=== PATIENT | female | born 1970 | race Caucasian/White ===

== ENCOUNTER 2017-12-08 19:14 | Emergency (ER) | payer OTHER ==
[~2017-12-08] VITALS: Ht 172.7 cm; Wt 89.4 kg
[2017-12-08 19:15] VITALS: BP_SYST 141
--- NOTE | 2017-12-08 19:16 | NUR ---
Patient to ER bed 1 to gown for evaluation. Side rails up. Seizure precautions in place.
--- NOTE | 2017-12-08 19:16 | NUR ---
Patient brought in by EMS. Patient reported to have Tonic/clonic seizures for 45 sec in the restaurant. No trauma per ems. Pt's airway patent. VSS. Pt has history of pseudo seizure per EMS. No SOB or acute distress noted. Will continue to monitor. Addendum: 12/08/17 at 2023 by [facility] Patient brought in by EMS. Patient reported to have Tonic/clonic seizures for 45 sec in the restaurant. No trauma per ems. Pt's airway patent. VSS. Pt has history of pseudo seizure per EMS. No SOB or acute distress noted. Padded side rails. Safety and seizure precautions in place. Will continue to monitor.
[2017-12-08] MEDS ORDERED: NACL 0.9% 1,000 ML IV ONE (19:17)
--- NOTE | 2017-12-08 19:17 | NUR ---
Patient came in with #20G L wrist on saline lock. IV site flushable with good blood return.
--- NOTE | 2017-12-08 19:21 | NUR ---
#20 gauge angiocath placed to RAC. Use of asceptic technique. Opsite placed over site. Blood return noted. Flushed with 10 cc of normal saline. No evidence of infiltration noted. Patient tolerated well.
[2017-12-08] MEDS ORDERED: LORazepam 2 MG/ML VIAL (FOR ER USE) IVP ONE (19:30)
[2017-12-08] MEDS ORDERED: levETIRAcetam 500 MG TABLET PO ONE (19:30)
[2017-12-08] MEDS ORDERED: LORazepam 2 MG/ML VIAL ONE (19:34)
--- NOTE | 2017-12-08 19:40 | NUR ---
ER Dr. Sanches at bedside examining patient.
[2017-12-08 19:46] LABS: BASOPHILS # (AUTO) 0.1 K/uL (0.0-0.2); BASOPHILS % (AUTO) 0.8 % (0.0-2.0); EOSINOPHILS # (AUTO) 0.3 K/uL (0.0-0.4); EOSINOPHILS % (AUTO) 4.5 % (0.0-4.0); HEMATOCRIT 38.7 % (36-48); HEMOGLOBIN 12.9 g/dL (12.0-16.0); LYMPHOCYTES # (AUTO) 2.3 K/uL (1.0-5.5); MEAN CORPUSCULAR HEMOGLOBIN 30 pg (27-31); MEAN CORPUSCULAR HGB CONC 33 % (32-36); MEAN CORPUSCULAR VOLUME 89 fL (79.0-98.0); MONOCYTES # (AUTO) 0.6 K/uL (0.0-1.0); MONOCYTES % (AUTO) 8.8 % (1.7-9.3); NEUTROPHILS % (AUTO) 49.9 % (40.0-70.0); PLATELET COUNT (AUTO) 317 K/uL (130-430); RED BLOOD CELL COUNT(AUTO) 4.37 MIL/uL (4.2-6.2); RED CELL DISTRIBUTION WIDTH 13.3 % (9.0-15.0); WHITE BLOOD COUNT (AUTO) 6.4 K/uL (4.8-10.8)
--- NOTE | 2017-12-08 19:48 | NUR ---
Pt's at bedside. Pt had 1 x episode of tonic clonic seizure for 3 mins. Pt VSS. Airway patent. Seizure pads kept in place. Will continue to monitor.
[2017-12-08 19:58] LABS: CALCIUM 8.7 mg/dL (8.4-11.0); CREATININE 0.87 mg/dL (0.55-1.30); POTASSIUM 3.4 mmol/L (3.5-5.1)
[2017-12-08] MEDS ORDERED: levETIRAcetam 1,000 MG IV BAG 100 ML IV ONE (20:00)
[2017-12-08 20:03] LABS: ALBUMIN 3.7 g/dL (3.4-4.8); TOTAL BILIRUBIN 0.3 mg/dL (0.0-1.0)
[2017-12-08 20:12] LABS: PROTHROMBIN TIME 10.3 SECS (9.5-12.5)
[2017-12-08] MEDS ORDERED: KETAMINE HCL 500 MG/10 ML VIAL IVP ONE ×2 (20:15→21:30)
[2017-12-08] MEDS ORDERED: KETAMINE HCL 500 MG/10 ML VIAL ONE (20:36)
--- NOTE | 2017-12-08 20:38 | NUR ---
Ketamine 80mg IVP given by ER MD Sanches. RT at bedside. Patient VSS. No distress noted. Will continue to monitor.
--- NOTE | 2017-12-08 21:12 | NUR ---
Dr. Sanches at bedside to re-evalutte patient.
--- NOTE | 2017-12-08 21:16 | NUR ---
Pt had tonic clonic seizure for 3 mins. Pt VSS. Airway remains patient. Safety and seizure precautions in place. MD made aware.
--- NOTE | 2017-12-08 21:21 | NUR ---
Tonic clonic seizure for 2mins. Airway remains patent. No distress noted. made aware.
--- NOTE | 2017-12-08 22:37 | NUR ---
Patient had multiple episodes of tonic clonic seizures every 10 - 30 mins, lasting from 1 - 15mins. Patient's airway kept patent. Seizure and aspiration precautions observed. Will continue to monitor.
[2017-12-08 23:23] VITALS: BP_SYST 137
--- NOTE | 2017-12-08 23:37 | NUR ---
Patient to be transferred to [facility]. Pt is being transferred due to [employer]. Receiving facility has accepting physician and available space. ER physician has signed transfer form. Patient or responsible alliance party has agreed to transfer and signed form. Patient belongings inventoried and will be sent with patient. Copy of nursing notes, lab reports, EKG, Physicians Orders and X-rays to be sent with patient. Receiving physician is Dr. Collins .
== END 2017-12-08 23:23 | disposition short-term general hospital (02) ==
LOC: SED 19:14 → EDBD 19:14 → SED 23:23
DX: R56.9 Unspecified convulsions (principal)
CPT/HCPCS: 36415; 80053; 82150; 82542; 83690; 85025; 85610; 85730; 96365; 96366; 96375; 96376; 99285; J1953; J2060; J7030

== ENCOUNTER 2018-02-27 05:53 | Emergency (ER) | payer OTHER ==
[~2018-02-27] VITALS: Ht 175.3 cm; Wt 81.6 kg
[2018-02-27 05:53] VITALS: BP_SYST 202
[2018-02-27] MEDS ORDERED: MORPHINE 4 MG/ML INJ. SYRINGE IVP ONE ×2 (06:15→07:00)
[2018-02-27] MEDS ORDERED: NACL 0.9% 1,000 ML IV ONE (06:15)
[2018-02-27 06:18] LABS: BASOPHILS # (AUTO) 0.1 K/uL (0.0-0.2); BASOPHILS % (AUTO) 1.3 % (0.0-2.0); EOSINOPHILS # (AUTO) 0.2 K/uL (0.0-0.4); EOSINOPHILS % (AUTO) 2.3 % (0.0-4.0); HEMATOCRIT 38.3 % (36-48); LYMPHOCYTES # (AUTO) 1.4 K/uL (1.0-5.5); LYMPHOCYTES % (AUTO) 13.5 % (20.5-51.5); MEAN CORPUSCULAR HEMOGLOBIN 30 pg (27-31); MEAN CORPUSCULAR HGB CONC 34 % (32-36); MEAN CORPUSCULAR VOLUME 87 fL (79.0-98.0); MONOCYTES # (AUTO) 0.5 K/uL (0.0-1.0); NEUTROPHILS # (AUTO) 7.9 K/uL (1.8-7.7); NEUTROPHILS % (AUTO) 77.9 % (40.0-70.0); PLATELET COUNT (AUTO) 379 K/uL (130-430); WHITE BLOOD COUNT (AUTO) 10.1 K/uL (4.8-10.8)
[2018-02-27 06:25] LABS: CALCIUM 9.2 mg/dL (8.4-11.0); CREATININE 0.79 mg/dL (0.55-1.30); POTASSIUM 3.7 mmol/L (3.5-5.1)
[2018-02-27 06:29] LABS: TOTAL BILIRUBIN 0.3 mg/dL (0.0-1.0)
[2018-02-27] MEDS ORDERED: KETOROLAC TROMETHAMINE 30 MG VIAL IVP ONE (06:30)
[2018-02-27] MEDS ORDERED: KETOROLAC TROMETHAMINE 30 MG VIAL ONE (06:35)
[2018-02-27 06:59] LABS: BILIRUBIN,URINE NEGATIVE (NEGATIVE); BLOOD, URINE NEGATIVE (NEGATIVE); CLARITY/URINE CLEAR (CLEAR); COLOR,URINE YELLOW (YELLOW); GLUCOSE,URINE NEGATIVE (NEGATIVE); KETONES,URINE TRACE (NEGATIVE); LEUKOCYTE ESTERASE ,URINE NEGATIVE (NEGATIVE); NITRITE, URINE NEGATIVE (NEGATIVE); PROTEIN URINE NEGATIVE (NEGATIVE); UROBILINOGEN,URINE 0.2 (0.2-1.0)
[2018-02-27] MEDS ORDERED: MAG HYDROX/AL HYDROX/SIMETH 30 ML, LIDOCAINE VISCOUS 2% 15ML (PO) 10 ML, BELLADONNA ALK... PO ONE ×3 (07:15)
[2018-02-27 07:16] LABS: BARBITURATE, URINE NEGATIVE (NEG <=200); BENZODIAZEPINE, URINE POSITIVE (NEG <=150); CANNABINOID, URINE NEGATIVE (NEG <=50); COCAINE, URINE NEGATIVE (NEG <=150); METHAMPHETAMINES SCREEN,URINE NEGATIVE (NEG <=500); OPIATE, URINE NEGATIVE (NEG <=100); PHENCYCLIDINE SCREEN,URINE NEGATIVE (NEG <=25); UR TRICYCLIC ANTIDEPRESSANTS NEGATIVE (NEG <=300); URINE AMPHETAMINE NEGATIVE (NEG <=500); URINE METHADONE NEGATIVE (NEG <=200); URINE OXYCODONE SCREEN NEGATIVE (NEG <=100); URINE PROPOXYPHENE SCREEN NEGATIVE (NEG <=300)
[2018-02-27 08:17] VITALS: BP_SYST 144
== END 2018-02-27 08:17 | disposition home or self-care (01) ==
LOC: SED 05:53
DX: K80.20 Calculus of gallbladder without cholecystitis without obstruction (principal)
CPT/HCPCS: 36415; 71045; 74176; 80053; 80307; 81003; 81025; 83690; 84484; 85025; 85379; 96361; 96374; 96375; 96376; 99285; J1885; J2001; J2270; J7030